=== PATIENT | male | born 1945 | race Caucasian/White ===

== ENCOUNTER 2018-05-17 10:07 | Emergency (ER) | payer MEDICARE, OTHER, SELFPAY ==
--- NOTE | 2018-05-17 10:15 | DI.RAD.S_ITS ---
PROCEDURE: XR FINGER LT MIN 2V INDICATIONS: crush injury TECHNIQUE: AP hand, 2 views of the index (2nd) finger(s) acquired. COMPARISON: None. FINDINGS: Bones: No fractures or dislocations. No suspicious bony lesions. Moderate degenerative changes are present involving the interphalangeal joints of the index finger. Soft tissues: No suspicious soft tissue calcifications. Soft tissue swelling of the index finger is present. No unexpected radiopaque foreign bodies are appreciated. IMPRESSION: 1. No displaced fracture of the index finger. 2. 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 Dictated by: Alonso Hernandez M.D. on 05/17/2018 at 10:22 Approved by: Alonso Hernandez M.D. on 05/17/2018 at 10:31
[2018-05-17 10:16] VITALS: BP 172/70; PULSE 64; RESP 16; TEMP 36.7; O2SAT 98
[2018-05-17] MEDS: TET,DIPH,PERTUSS(ACELL),VAC/PF 0.5 ML SYRINGE IM (10:23)
--- NOTE | 2018-05-17 10:48 | ED.UPPEXIN ---
HPI - Extremity Injury (Upper) General Chief Complaint: Extremity Injury, Upper Stated Complaint: left hand pointer finger crush injury Time Seen by Provider: 05/17/18 10:35 Source: patient Mode of arrival: ambulatory Limitations: no limitations History of Present Illness HPI narrative: This is a 72-year-old male who comes in with complaint of injury to his left 2nd finger. Patient states he was loading up a trailer that was heavy. They had on a [place] and as they moved forward fell catching his finger between the ball and the trailer hitch. The patient states it was quite painful initially but has improved. He has full range of motion he states that he is able to feel touch. He has a laceration adjacent to the nail in running up the finger. He states his pain has pretty much resolved at this time. He states his tetanus was already updated here in the department. Patient denies any medical problems. States he has had his tonsils removed in the past. Denies any allergies to medications. Related Data Previous Rx's Medication Instructions Recorded cephalexin [Keflex] 500 mg PO QID #40 cap 05/17/18 Allergies Allergy/AdvReac Type Severity Reaction Status Date / Time No Known Drug Allergies Allergy Verified 05/17/18 10:22 Review of Systems Review of Systems ROS Unobtainable: All systems reviewed & are unremarkable except as noted in HPI and below Musculoskeletal Reports as per HPI, Denies deformity, Denies numbness and Denies tingling Integumentary/Breasts Reports unusual bruising and Reports wounds Neurologic Denies numbness and Denies tingling PFSH Surgical History History of tonsillectomy (Acute) Exam Narrative Exam Narrative: GENERAL: Alert and oriented x three, well-nourished, well-appearing male in mild distress. HEENT: Head normocephalic, atraumatic, EOMI, pupils reactive, face symmetric, moist mucous membranes NECK: Supple, full range of motion CARDIOVASCULAR: Regular rate and rhythm without murmurs, rubs or gallops. RESPIRATORY: Breath sounds equal bilaterally, no wheezes rales or rhonchi. ABDOMEN: Soft, nontender. Normoactive bowel sounds all 4 quadrants. No guarding or rebound, rigidity, no mass : No CVA tenderness EXTREMITIES: Normal range of motion, no clubbing. Patient has an irregular laceration of the midline of the dorsum of the finger extending just beyond the distal interphalangeal joint, also adjacent to the radial side of the nail patient has some swelling, pain. Patient has sensation to light touch throughout the finger. Cap refills less than 2 sec. He has some bruising underneath the finger. Patient is able to flex and extend the finger fully. No weakness. Patient has 2+ radial pulse. Neurovascularly intact NEUROLOGICAL: Cranial nerves II through XII grossly intact. Moving all extremities SKIN: Warm, dry, no petechiae, no rashes or lesions. Initial Vital Signs Initial Vital Signs: Vital Signs Temperature 98.1 F 05/17/18 10:16 Pulse Rate 64 05/17/18 10:16 Respiratory Rate 16 05/17/18 10:16 Blood Pressure 172/70 H 05/17/18 10:16 Pulse Oximetry 98 05/17/18 10:16 Procedures Laceration Repair Laceration 1: Site: hand (2nd finger) Side (If applicable): left Size (cm): 2.3 Description: irregular Depth: simple, single layer Local Anesthetic: lidocaine 1% Amount of anesthesia used (mL): 8 Pre-repair: wound explored, irrigated extensively and deep structures intact Skin layer closed with: nylon Size (cm): 4-0 Number of sutures: 5 Technique: simple, interrupted Course Orders Ordered: Discontinued Medications Diphtheria/Tetanus/Acell Pertussis (Adacel) 0.5 ml IM .ONCE ONE Stop: 05/17/18 10:16 Last Admin: 05/17/18 10:23 Dose: 0.5 ml Vital Signs - 8 hr 05/17/18 10:16 Temperature 98.1 F Pulse Rate 64 Respiratory Rate 16 Blood Pressure 172/70 H Pulse Oximetry 98 MDM - Extremity Injury (Upper) Imaging Data finger xray: Radiologist's impression: [address] [address] XRay Report Signed Patient: Van Seth#: [id number] : 1945cct:[id number] Age/Sex: 72 / MDate of Service: 05/17/18 Loc: ED Accession Number: [id number] Procedure: XR finger LT min 2V Ordering Provider: Kaleigh Hill D.O. PROCEDURE: XR FINGER LT MIN 2V INDICATIONS: crush injury TECHNIQUE: AP hand, 2 views of the index (2nd) finger(s) acquired. COMPARISON: None. FINDINGS: Bones: No fractures or dislocations. No suspicious bony lesions. Moderate degenerative changes are present involving the interphalangeal joints of the index finger. Soft tissues: No suspicious soft tissue calcifications. Soft tissue swelling of the index finger is present. No unexpected radiopaque foreign bodies are appreciated. IMPRESSION: 1. No displaced fracture of the index finger. 2. 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 Dictated by: Alonso Hernandez M.D. on 05/17/2018 at 10:22 Approved by: Alonso Hernandez M.D. on 05/17/2018 at 10:31 Discharge Plan Departure Patient Disposition: Home Clinical Impression: Laceration of finger of left hand with damage to nail Qualifiers: Encounter type: initial encounter Finger: index finger Foreign body presence: without foreign body Qualified Code(s): S61.311A - Laceration without foreign body of left index finger with damage to nail, initial encounter Discharge Date/Time: 05/17/18 12:58 Interventions: ED Discharge Assessment Last Done: 05/17/18 12:58 Instructions: DI for Laceration Repair -- Finger Activity Restrictions/Additional Instructions: Followup the next 7-10 days for suture removal. Take Keflex 4 times daily until gone. You may take ibuprofen and/or Tylenol as needed for pain. Wound Care: Keep wound(s) clean and dry. Wash daily with soap and water only. Do not use over the counter products (alcohol or peroxide)on the wounds unless instructed by a physician. If wound condition worsens (increased/expanding redness, developing fluid blisters, or worsening pain), either contact your doctor for an urgent re-assessment , or return to the Emergency Department. Return to the Emergency Department for any new or worsening symptoms. Return to the ED, urgent care, or vist a primary care doctor for removal or suture or ashley Return if fever greater than 100.4 Fahrenheit, increased swelling, increasing pain or worsening symptoms such as increased discharge or spreading redness. Use warm compresses 3 times daily for 20 minutes to the affected area. If there is packing in place do not pull it out, if it falls out do not try to replace it. Prescriptions: New cephalexin [Keflex] 500 mg capsule 500 mg PO QID Qty: 40 RF: 0 Referrals: Gigi Zheng MD [Primary Care Provider] -
--- NOTE | 2018-05-17 10:52 | ED_ITS ---
HPI - Extremity Injury (Upper) General Chief Complaint: Extremity Injury, Upper Stated Complaint: left hand pointer finger crush injury Time Seen by Provider: 05/17/18 10:35 Source: patient Mode of arrival: ambulatory Limitations: no limitations History of Present Illness HPI narrative: This is a 72-year-old male who comes in with complaint of injury to his left 2nd finger. Patient states he was loading up a trailer that was heavy. They had on a [place] and as they moved forward fell catching his finger between the ball and the trailer hitch. The patient states it was quite painful initially but has improved. He has full range of motion he states that he is able to feel touch. He has a laceration adjacent to the nail in running up the finger. He states his pain has pretty much resolved at this time. He states his tetanus was already updated here in the department. Patient denies any medical problems. States he has had his tonsils removed in the past. Denies any allergies to medications. Related Data Previous Rx's Medication Instructions Recorded cephalexin [Keflex] 500 mg PO QID #40 cap 05/17/18 Allergies Allergy/AdvReac Type Severity Reaction Status Date / Time No Known Drug Allergies Allergy Verified 05/17/18 10:22 Review of Systems Review of Systems ROS Unobtainable: All systems reviewed & are unremarkable except as noted in HPI and below Musculoskeletal Reports as per HPI, Denies deformity, Denies numbness and Denies tingling Integumentary/Breasts Reports unusual bruising and Reports wounds Neurologic Denies numbness and Denies tingling PFSH Surgical History History of tonsillectomy (Acute) Exam Narrative Exam Narrative: GENERAL: Alert and oriented x three, well-nourished, well- appearing male in mild distress. HEENT: Head normocephalic, atraumatic, EOMI, pupils reactive, face symmetric, moist mucous membranes NECK: Supple, full range of motion CARDIOVASCULAR: Regular rate and rhythm without murmurs, rubs or gallops. RESPIRATORY: Breath sounds equal bilaterally, no wheezes rales or rhonchi. ABDOMEN: Soft, nontender. Normoactive bowel sounds all 4 quadrants. No guarding or rebound, rigidity, no mass : No CVA tenderness EXTREMITIES: Normal range of motion, no clubbing. Patient has an irregular laceration of the midline of the dorsum of the finger extending just beyond the distal interphalangeal joint, also adjacent to the radial side of the nail patient has some swelling, pain. Patient has sensation to light touch throughout the finger. Cap refills less than 2 sec. He has some bruising underneath the finger. Patient is able to flex and extend the finger fully. No weakness. Patient has 2+ radial pulse. Neurovascularly intact NEUROLOGICAL: Cranial nerves II through XII grossly intact. Moving all extremities SKIN: Warm, dry, no petechiae, no rashes or lesions. Initial Vital Signs Initial Vital Signs: Vital Signs Temperature 98.1 F 05/17/18 10:16 Pulse Rate 64 05/17/18 10:16 Respiratory Rate 16 05/17/18 10:16 Blood Pressure 172/70 H 05/17/18 10:16 Pulse Oximetry 98 05/17/18 10:16 Procedures Laceration Repair Laceration 1: Site: hand (2nd finger) Side (If applicable): left Size (cm): 2.3 Description: irregular Depth: simple, single layer Local Anesthetic: lidocaine 1% Amount of anesthesia used (mL): 8 Pre-repair: wound explored, irrigated extensively and deep structures intact Skin layer closed with: nylon Size (cm): 4-0 Number of sutures: 5 Technique: simple, interrupted Course Orders Ordered: Discontinued Medications Diphtheria/Tetanus/Acell Pertussis (Adacel) 0.5 ml IM .ONCE ONE Stop: 05/17/18 10:16 Last Admin: 05/17/18 10:23 Dose: 0.5 ml Vital Signs - 8 hr 05/17/18 10:16 Temperature 98.1 F Pulse Rate 64 Respiratory Rate 16 Blood Pressure 172/70 H Pulse Oximetry 98 MDM - Extremity Injury (Upper) Imaging Data finger xray: Radiologist's impression: [address] [address] XRay Report Signed Patient: Van Seth#: [id number] : 1945cct:[id number] Age/Sex: 72 / MDate of Service: 05/17/18 Loc: ED Accession Number: [id number] Procedure: XR finger LT min 2V Ordering Provider: Kaleigh Hill D.O. PROCEDURE: XR FINGER LT MIN 2V INDICATIONS: crush injury TECHNIQUE: AP hand, 2 views of the index (2nd) finger(s) acquired. COMPARISON: None. FINDINGS: Bones: No fractures or dislocations. No suspicious bony lesions. Moderate degenerative changes are present involving the interphalangeal joints of the index finger. Soft tissues: No suspicious soft tissue calcifications. Soft tissue swelling of the index finger is present. No unexpected radiopaque foreign bodies are appreciated. IMPRESSION: 1. No displaced fracture of the index finger. 2. 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 Dictated by: Alonso Hernandez M.D. on 05/17/2018 at 10:22 Approved by: Alonso Hernandez M.D. on 05/17/2018 at 10:31 Discharge Plan Departure Patient Disposition: Home Clinical Impression: Laceration of finger of left hand with damage to nail Qualifiers: Encounter type: initial encounter Finger: index finger Foreign body presence: without foreign body Qualified Code(s): S61.311A - Laceration without foreign body of left index finger with damage to nail, initial encounter Discharge Date/Time: 05/17/18 12:58 Interventions: ED Discharge Assessment Last Done: 05/17/18 12:58 Instructions: DI for Laceration Repair -- Finger Activity Restrictions/Additional Instructions: Followup the next 7-10 days for suture removal. Take Keflex 4 times daily until gone. You may take ibuprofen and/or Tylenol as needed for pain. Wound Care: Keep wound(s) clean and dry. Wash daily with soap and water only. Do not use over the counter products (alcohol or peroxide)on the wounds unless instructed by a physician. If wound condition worsens (increased/expanding redness, developing fluid blisters, or worsening pain), either contact your doctor for an urgent re- assessment , or return to the Emergency Department. Return to the Emergency Department for any new or worsening symptoms. Return to the ED, urgent care, or vist a primary care doctor for removal or suture or ashley Return if fever greater than 100.4 Fahrenheit, increased swelling, increasing pain or worsening symptoms such as increased discharge or spreading redness. Use warm compresses 3 times daily for 20 minutes to the affected area. If there is packing in place do not pull it out, if it falls out do not try to replace it. Prescriptions: New cephalexin [Keflex] 500 mg capsule 500 mg PO QID Qty: 40 RF: 0 Referrals: Gigi Zheng MD [Primary Care Provider] -
== END 2018-05-17 12:58 | disposition home or self-care (01) ==
PROVIDERS: Emergency Provider Emergency Medicine; PCP Family Medicine
DX: S61.311A Laceration without foreign body of left index finger with damage to nail, initial encounter (principal); Z23 Encounter for immunization
CPT/HCPCS: 12001; 73140; 90471; 99282; 99284; 90715

== ENCOUNTER → 2023-01-30 07:39 | Outpatient (CLI) | payer MEDICARE, OTHER, SELFPAY ==
--- NOTE | 2023-01-30 | DI.ECHO.S_ITS ---
[facility] +---------+ : : [address] : : : : [id number] : : : : Phone: [phone]---------+ Echocardiogram Report + + :Name: PATRICA OBRIEN Study Date: 01/30/2023 Height: 69 in : :[facility] ReadingLocation: Weight: 188 lb : : Gender: Male BSA: 2.0 m2 : :: 1945 Age: 77 yrs BP: 139/89 mmHg: :Reason For Study: CHEST PAIN : :Ordering Physician: GENEVIEVE, : :VEDA Performed By: Suyapa Philippe : :Referring: VEDA VALLEJO : + + Interpretation Summary The ejection fraction is estimated to be 60-65%. Diastolic parameters suggest probable normal left ventricular diastolic function and normal filling pressures. The right ventricle is normal in size and function. There is mild aortic regurgitation. Pulmonary artery pressures cannot be estimated because of the lack of a measurable TR jet velocity but the IVC suggests a CVP of around 3 mmHg. The ascending aorta is mildly enlarged, 3.8 cm. Procedure: A two-dimensional transthoracic echocardiogram with color flow and Doppler was performed. The study quality was technically adequate. There is no prior echocardiogram noted for this patient. The patient was in sinus rhythm with heart rates between 55-78 bpm during the exam. Left Ventricle: The left ventricle is normal in size. Proximal septal thickening is noted. The ejection fraction is estimated to be 60-65%. Diastolic parameters suggest probable normal left ventricular diastolic function and normal filling pressures. Right Ventricle: The right ventricle is normal in size and function. Atria: The left atrial size is normal. Right atrial size is normal. There is no Doppler evidence for an interatrial shunt. Mitral Valve: The mitral valve is normal in structure and function. There is no mitral regurgitation noted. Aortic Valve: The aortic valve is trileaflet. The aortic valve opens well. There is no aortic valve stenosis. There is mild aortic regurgitation. Tricuspid Valve: The tricuspid valve is normal in structure and function. No tricuspid regurgitation. Pulmonary artery pressures cannot be estimated because of the lack of a measurable TR jet velocity but the IVC suggests a CVP of around 3 mmHg. Pulmonic Valve: The pulmonic valve leaflets are thin and pliable; valve motion is normal. There is a trace or physiologic amount of pulmonic regurgitation. Great Vessels: The aortic root is borderline dilated. The ascending aorta is mildly enlarged. The IVC is of normal diameter and collapses greater than 50% with a sniff. This suggests a low right atrial pressure of 3 mm Hg. Pericardium/ Pleura There is no pericardial effusion. There is no pleural effusion. MMode/2D Measurements & Calculations LVIDd: 5.4 cm LVOT diam: 2.1 cm LVIDs: 3.5 cm Ao root diam: 4.0 cm FS: 34.9 % asc Aorta Diam: 3.8 cm IVSd: 0.96 cm Ao Arch Diam (Prox Trans): 2.6 cm LVPWd: 0.90 cm LV modi. diameter/BSA (cm/m^2): 2.7 LV sys. diameter/BSA (cm/m^2): 1.7 LA A2 area: 24.2 cm2 RA long axis: 4.7 cm LA A4 area: 16.4 cm2 RA area: 14.5 cm2 LA length (vol): 5.1 cm RA vol: 37.8 ml LA vol: 66.2 ml RA : 18.8 ml/m2 LA vol index: 32.9 ml/m2 IVC diam: 1.5 cm RVD1 (basal): 3.7 cm TAPSE: 2.5 cm Doppler Measurements & Calculations Ao V2 max: 118.5 cm/sec LVOT Max Kahlil: 113.0 cm/sec Ao V2 mean: 81.2 cm/sec LV V1 max P.1 mmHg Ao max P.6 mmHg LV V1 VTI: 22.4 cm Ao mean P.9 mmHg TARA(I,D): 3.5 cm2 Ao V2 VTI: 23.2 cm TARA(V,D): 3.5 cm2 sev ratio: 0.97 TARA indexed to BSA (cm^2/m^2): 1.7 MV E max kahlil: 73.7 cm/sec PA pr(Accel): 34.5 mmHg MV A max kahlil: 49.0 cm/sec MV E/A: 1.5 Med Peak E' Kahlil: 6.2 cm/sec E/E' med: 11.9 Lat Peak E' Kahlil: 6.7 cm/sec E/E' lat: 11.1 E/e' average: 11.5 MV dec time: 0.19 sec SV(LVOT): 81.3 ml Reading Physician:10:56 AM
== END ==
PROVIDERS: PCP Internal Medicine; Referring Provider Physician Assistant Medical; Visit Provider Physician Assistant Medical
DX: I35.1 Nonrheumatic aortic (valve) insufficiency (principal); R07.9 Chest pain, unspecified; I77.89 Other specified disorders of arteries and arterioles
CPT/HCPCS: 93306

== ENCOUNTER → 2023-04-16 08:19 | Outpatient (CLI) | payer MEDICARE, OTHER, SELFPAY ==
--- NOTE | 2023-04-16 08:22 | DI.US.S_ITS ---
PROCEDURE: US CAROTID DOPPLER BI INDICATIONS: Syncope and collapse TECHNIQUE: Color and pulse Doppler interrogation was performed of both carotid systems, with image documentation and velocity measurements. COMPARISON: None. FINDINGS: Stenosis calculations are based on SRU (Society of Radiologists in Ultrasound) criteria. Right side: Brachial blood pressure: 123/72 mm Hg. Common carotid artery peak systolic velocity: 78 cm/sec. Internal carotid artery peak systolic velocity: 89 cm/sec. Internal carotid artery end diastolic velocity: 27 cm/sec. External carotid artery peak systolic velocity: 76 cm/sec. ICA/CCA peak systolic ratio: 1.2. Ceballos scale imaging description: Mild plaque Percent internal carotid artery stenosis: Less than 50%. Vertebral artery: Flow direction is antegrade. Left side: Brachial blood pressure: 133/76 mm Hg. Common carotid artery peak systolic velocity: 70 cm/sec. Internal carotid artery peak systolic velocity: 95 cm/sec. Internal carotid artery end diastolic velocity: 71 cm/sec. External carotid artery peak systolic velocity: 108 cm/sec. ICA/CCA peak systolic ratio: 1.4. Ceballos scale imaging description: Mild plaque at the bifurcation Percent internal carotid artery stenosis: Less than 50%. Vertebral artery: Flow direction is antegrade. 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 Dictated by: Ivory Yang M.D. on 04/16/2023 at 17:00 Approved by: Ivory Yang M.D. on 04/16/2023 at 17:03
[2023-04-16 10:31] LABS: Add Manual Diff / Slide Review NO; Basophils Absolute Auto 0 /uL (0-100); Basophils Percent Auto 0.5 % (0-2); Eosinophils Absolute Auto 200 /uL (0-450); Hematocrit 44.4 % (41-53); Hemoglobin 15.5 g/dL (13.5-17.5); Lymphocytes Absolute Auto 1700 /uL (1100-4500); Lymphocytes Percent Auto 32.4 % (25-40); Mean Corpuscular Hemoglobin 31.5 PG (26-34); Monocytes Absolute Auto 500 /uL (0-900); Monocytes Percent Auto 8.8 % (3-14); Neutrophils Absolute Auto 2900 /uL (1500-7000); Neutrophils Percent Auto 55.3 % (50-75); Platelet Count 193 X10^3/uL (150-400); Red Blood Cell Count 4.93 X10^6/uL (4.5-5.9); Red Cell Distribution Width 13.9 % (11.6-14.8); White Blood Cell Count 5.3 X10^3/uL (4.5-11.0)
[2023-04-16 10:52] LABS: Alanine Aminotransferase 16 IU/L (<50); Albumin 4.1 g/dL (3.5-5.0); Albumin Globulin Ratio 1.4 (1.0-2.8); Alkaline Phosphatase 66 U/L (38-126); Aspartate Aminotransferase 22 IU/L (17-59); BUN Creatinine Ratio 15.3 (6-22); Bilirubin Total 0.9 mg/dL (0.2-1.3); Blood Urea Nitrogen 15 mg/dL (9-20); Carbon Dioxide 27 mmol/L (22-32); Chloride 103 mmol/L (98-107); Cholesterol 196 mg/dL (140-199); Estimated Glomerular Filt Rate > 60 mL/min (>60); Globulin 2.9 g/dL (1.7-4.1); Glucose 103 mg/dL (80-110); HDL Cholesterol 36 mg/dL (40-60); HEMOLYSIS < 15 (0-50); LDL Cholesterol Calculated 126 mg/dL (<100); Potassium 4.4 mmol/L (3.4-5.1); Sodium 136 mmol/L (137-145); Triglycerides 168 mg/dL (35-150)
[2023-04-16 11:17] LABS: Prostate Specific Antigen Scrn 2.43 ng/mL (0.1-4.0)
[2023-04-16 11:36] LABS: Vitamin B12 281 pg/mL (239-931)
[2023-04-16 11:43] LABS: TSH w/ Reflex to FT4 1.75 uIU/mL (0.47-4.68)
== END ==
PROVIDERS: PCP Internal Medicine; Referring Provider Internal Medicine; Visit Provider Internal Medicine
DX: I65.23 Occlusion and stenosis of bilateral carotid arteries (principal); R55 Syncope and collapse; E78.2 Mixed hyperlipidemia; N40.1 Benign prostatic hyperplasia with lower urinary tract symptoms; R41.3 Other amnesia; Z87.11 Personal history of peptic ulcer disease
CPT/HCPCS: 36415; 80053; 80061; 82607; 84153; 84443; 85025; 93880; G0103

== ENCOUNTER 2025-02-07 16:57 | Emergency (ER) | payer MEDICARE, OTHER, SELFPAY ==
[2025-02-07] VITALS (14 sets, daily range): BP systolic 141–171; BP diastolic 73–94; PULSE 63–75; RESP 17–27; TEMP 36.9; O2SAT 95–99; BMI 26.6
--- NOTE | 2025-02-07 18:22 | ED_ITS ---
HPI - Male Genitourinary General Chief complaint: Urogenital-Male Stated complaint: urinary issues Time Seen by Provider: 02/07/25 17:14 Source: patient and EMS Mode of arrival: EMS History of Present Illness HPI Narrative: 79-year-old male without any significant past medical history comes into the ED from home via EMS for evaluation of multiple complaints, patient states that all his symptoms started a proximally 1 month ago when he had a mechanical trip and fall, he states that he tripped off of a step going up his truck. He states that he did hit his head did pass out for few sec but ended up being able to go home, he states that since then he has felt like he has been having some brain fog, he also states that he has been having some dysuria dark and foul-smelling urine. He denies blood thinners denies any other symptoms such as headache visual disturbance chest pain shortness breath fever chills or any other GI/ symptoms at this time. Patient states that given length of symptoms decided come into the ED for further evaluation treatment. At time of my evaluation patient NIH of 0 no focal deficits he is only really complaining of the intermittent brain fog and the urinary symptoms. NIH of 0 no focal deficits Related Data Previous Rx's ?Medication ?Instructions ?Recorded cephalexin 500 mg capsule (Keflex) 500 mg PO QID #40 c aps 05/17/18 cefuroxime axetil 500 mg tablet 500 mg PO BID 7 days # 14 tabs 02/07/25 Allergies Allergy/AdvReac Type Severity Reaction Status Date / Time No Known Drug Allergies Allergy Verified 02/07/25 17:26 Review of Systems Review of Systems Narrative: General: Denies fever, chills, weight loss HEENT: Positive head strike, Denies headache, eye drainage, eye irritation, head trauma, sore throat, voice change Cardiovascular: Denies any chest pain, palpitations, tachycardia Respiratory: Denies any shortness of breath, cough, wheeze, stridor GI/: Positive dysuria, foul-smelling urine Denies any abdominal pain, nausea, vomiting, diarrhea, bright red blood per rectum, melanotic stools, urinary frequency, urinary retention, hematuria MSK: Denies any joint pain, muscle pains, swelling Skin: Denies any rashes, lesions, discoloration Neuro: Positive brain fog/confusion Denies any headache, lightheadedness, dizziness, fainting, weakness Psych: Denies SI/HI Patient History Surgical History (Updated 05/17/18 @ 10:50 by Kaleigh Hill DO) History of tonsillectomy Social History Smoking Status: Never smoker Smoking Status: Never smoker Exam Narrative Exam Narrative: General: Cooperative, well-developed, not in acute distress HEENT: Normocephalic, atraumatic, PERRLA, normal sclera, eyelids normal Neck: Active full range of motion, atraumatic Chest: Normal to inspection, negative crepitus, no overlying erythema ecchymosis Respiratory: Normal respiratory effort, not in acute respiratory distress, clear to auscultation bilaterally negative cough, wheeze, tachypnea, rhonchi, rales Cardiology: Regular rate rhythm negative gallop, murmur, rubs GI/: No tenderness to palpation, soft, non rigid, normal to inspection, exam deferred MSK: Full active range of motion in all 4 extremities, atraumatic, no tenderness to palpation of any bony prominences Skin: No rashes or lesions noted Neuro: NIH of 0 no focal deficits Alert awake oriented x3, moves all 4 extremities spontaneously, cranial nerves intact, able to answer all questions appropriately follows commands appropriately Psych: Cooperative, negative suicidal or homicidal ideations Initial Vital Signs Initial Vital Signs: Vital Signs Temperature 98.4 F 02/07/25 17:26 Pulse Rate 71 02/07/25 17:26 Respiratory Rate 18 02/07/25 17:26 Blood Pressure 171/87 H 02/07/25 17:26 Pulse Oximetry 97 02/07/25 17:26 Oxygen Delivery Method Room Air 02/07/25 17:26 Course Orders Ordered: ED Orders 02/07/25 17:21 Complete Blood Count AUTO DIFF Stat Comprehensive Metabolic Panel Stat Lipase Stat Magnesium Stat NT-proBNP (BNP-Adult 18+) Stat PTT Partial Thromboplastin [place] Stat Prothrombin Time INR Stat Troponin & CK Cardiac Panel Stat 02/07/25 18:41 XR chest 1V Stat EKG-12 Lead Stat 02/07/25 18:42 CT head/brain wo con Stat Covid-19 + FLU A/B + RSV - PCR Stat 02/07/25 20:46 Urine Microscopic Stat Discontinued Medications Sodium Chloride (Normal Saline 0.9%) 1,000 mls @ 1,000 mls/hr IV BOLUS ONE Stop: 02/07/25 19:40 Last Infusion: 02/07/25 20:47 Dose: Infused Documented By: Admin: 02/07/25 18:57 Dose: 1,000 mls/hr Documented By: NITISH Vital Signs Vital signs: Vital Signs - 8 hr 02/07/25 17:26 02/07/25 18:11 02/07/25 18:15 Temperature 98.4 F Pulse Rate 71 63 Respiratory Rate 18 18 Blood Pressure 171/87 H 157/73 H Pulse Oximetry 97 98 Oxygen Delivery Method Room Air 02/07/25 18:15 02/07/25 18:30 02/07/25 18:30 Temperature Pulse Rate 67 70 Respiratory Rate 23 17 Blood Pressure 143/76 H Pulse Oximetry 99 98 Oxygen Delivery Method 02/07/25 18:45 02/07/25 18:45 Temperature Pulse Rate 67 Respiratory Rate 23 Blood Pressure 141/75 H Pulse Oximetry 97 Oxygen Delivery Method MDM - Male Genitourinary Lab Data 02/07/25 17:21 02/07/25 17:21 Labs: Lab Results 02/07/25 Range/Units 17:21 WBC 6.3 (4.5-11.0) X10^3/uL RBC 4.82 (4.5-5.9) X10^6/uL Hgb 15.0 (13.5-17.5) g/dL Hct 42.2 (41-53) % MCV 87.5 (80-100) fL MCH 31.1 (26-34) PG MCHC 35.5 (30-36) % RDW 12.8 (11.6-14.8) % Plt Count 260 (150-400) X10^3/uL Neut % (Auto) 80.9 H (50-75) % Lymph % (Auto) 10.2 L (25-40) % [place]iss % (Auto) 7.9 (3-14) % Eos % (Auto) 0.7 L (2-4) % Baso % (Auto) 0.3 (0-2) % Neut # (Auto) 5100 (5761-9539) /uL Lymph # (Auto) 600 L (3989-9289) /uL [place] # (Auto) 500 (0-900) /uL Eos # (Auto) 0 (0-450) /uL Baso # (Auto) 0 (0-100) /uL PT 13.5 H (9.4-12.5) SECONDS INR 1.2 (0.9-1.3) APTT 27 (25.1-36.5) SECONDS Sodium 133 L (137-145) mmol/L Potassium 3.7 (3.4-5.1) mmol/L Chloride 97 L (98-107) mmol/L Carbon Dioxide 26 (22-32) mmol/L BUN 21 H (9-20) mg/dL Creatinine 1.11 (0.66-1.25) mg/dL Estimated GFR > 60 (>60) mL/min BUN/Creatinine Ratio 18.9 (6-22) Glucose 104 H (70-99) mg/dL Calcium 9.2 (8.4-10.2) mg/dL Magnesium 2.0 (1.6-2.3) mg/dL Total Bilirubin 1.3 (0.2-1.3) mg/dL AST 26 (17-59) IU/L ALT 20 (<50) IU/L Alkaline Phosphatase 94 (38-126) U/L Total Creatine Kinase 42 L (55-170) U/L Troponin I < 0.012 (0.01-0.034) ng/mL NT-Pro-B Natriuret Pep 232 (<450) pg/mL Total Protein 7.5 (6.3-8.2) g/dL Albumin 4.2 (3.5-5.0) g/dL Globulin 3.3 (1.7-4.1) g/dL Albumin/Globulin Ratio 1.3 (1.0-2.8) Lipase 50 (23-300) U/L Urine Dip Bedside Urine Glucose Negative Bedside Urine Bilirubin - Negative Bedside Urine Ketone + 15 Urine Specific [place] 1.015 Bedside Urine Occult Blood ++ Bedside Urine pH 6.0 Bedside Urine Protein +/- 15 Bedside Urine Urobilinogen +/- 1mg Bedside Urine Nitrite + Positive Bedside Urine Leukocytes ++ 125 Esterase ECG Data Interpretation: EKG interpreted by ED physician sinus 68 beats per minute QTC 423, normal axis no STEMI MDM Narrative Medical decision making narrative: 79-year-old male without any significant past medical history coming into the ED from home via EMS for evaluation multiple complaints. He states that 1 month ago after he had a mechanical trip and fall when he was going up his truck he fell hit his head had LOC but went about his day afterwards. He is not on any blood thinners, he states that since then he has been feeling brain fog/for confusion, he also states that a proximally a week ago he started developing foul-smelling darker urine. He states that he had worsening brain fog today while playing poker therefore called his family member who is a nurse and told him to be evaluated in the ED. at time of my evaluation patient NIH of 0 no focal deficits his real only complaint is the brain fog and his dysuria/foul- smelling urine. Patient lab work was reviewed, no leukocytosis, Chem panel unremarkable, troponin negative, BNP negative, patient's CT scan of the head without any acute intracranial abnormality, chest x-ray without any acute cardiopulmonary abnormality, urinalysis did show signs of acute urinary tract infection Discharge Plan Departure Patient Disposition: Home Clinical Impression: Urinary tract infection Instructions: DI for Urinary Tract Infection (UTI) Activity Restrictions/Additional Instructions: Please follow up with the primary care doctor Please read the discharge instructions sheet carefully and bring all papers to all doctor follow-up visits, as it may contain information that your doctor may want to see. Disease processes change and evolve, if your symptoms worsen or if you develop any new symptoms that are concerning to you please return for evaluation. Your evaluation today does not show any evidence of any life- threatening/serious illnesses requiring admission to the hospital or surgery. Please follow-up with your doctor for re-evaluation in approximately 1 day. Seek immediate medical attention for any worrisome symptoms. *If you do not have a primary care provider please contact the [facility] Resource line at [phone]. They will ask some questions about your medical history and help get you set up with a doctor in the community. Prescriptions: New cefuroxime axetil 500 mg tablet 500 mg PO BID 7 Days Qty: 14 0RF No Action cephalexin [Keflex] 500 mg capsule 500 mg PO QID Qty: 40 0RF Referrals: Luis Steve MD [Primary Care Provider, Internal Medicine] Stand Alone Forms: Patient Portal/API
--- NOTE | 2025-02-07 18:41 | DI.RAD.S_ITS ---
PROCEDURE: XR CHEST 1V INDICATIONS: AMS TECHNIQUE: One view of the chest was acquired. COMPARISON: [facility], CR, XR CHEST 1 VIEW, 01/17/2023, 18:24. [facility], CT, CT HEAD/BRAIN WO CON, 02/07/2025, 18:50. FINDINGS: Surgical changes and devices: None. Lungs and pleura: Lungs are clear. No pleural effusions or pneumothorax. Mediastinum: The cardiac contours are within normal limits. The aorta demonstrates calcification and tortuosity. Bones and chest wall: Age-appropriate bony degenerative changes are seen. No suspicious bony lesions. Overlying soft tissues appear unremarkable. IMPRESSION: No acute cardiopulmonary abnormality is seen. Dictated by: Carlos Natarajan M.D. on 02/07/2025 at 18:22 Approved by: Carlos Natarajan M.D. on 02/07/2025 at 18:22
--- NOTE | 2025-02-07 18:41 | EKG_ITS ---
[address] [address] Test Date: 2025-02-07 Pat Name: Van Seth Department: [facility] Room: Gender: Male Group Rooms Coordinator: ALDA : 1945 Requested By: Order Number: [id number] Reading MD: Measurements Intervals [place] Rate: 68 P: 41 GA: 202 QRS: -22 QRSD: 90 T: 6 QT: 398 QTc: 423 Interpretive Statements Normal sinus rhythm
--- NOTE | 2025-02-07 18:42 | DI.CT.S_ITS ---
PROCEDURE: CT HEAD/BRAIN WO CON INDICATIONS: AMS, head strike x1 month ago TECHNIQUE: Noncontrast 4.5 mm thick angled axial sections acquired from the foramen magnum to the vertex, with coronal and sagittal reformats. For radiation dose reduction, the following was used: automated exposure control, adjustment of mA and/or kV according to patient size. COMPARISON: [facility], MR, BRAIN WITHOUT CONTRAST, 01/07/2016, 17:42. FINDINGS: Image quality: This examination is limited by involuntary motion artifact. CSF spaces: Basal cisterns are patent. No extra-axial fluid collections. The ventricles are symmetric in size and shape. Brain: No intracranial bleeds or mass effect. There is cerebral volume loss, with resultant ventricular and sulcal prominence. There are periventricular and deep white matter chronic small vessel ischemic changes. There is intracranial internal carotid artery atherosclerosis. Skull and face: Calvarium and visualized facial bones appear intact, without suspicious lesions. Sinuses: Visualized sinuses and mastoids are clear. IMPRESSION: No acute intracranial hemorrhage is seen. No acute intracranial pathology. To the limits of this noncontrast study, no findings of intracranial masses or mass effect can be seen. Dictated by: Carlos Natarajan M.D. on 02/07/2025 at 18:13 Approved by: Carlos Natarajan M.D. on 02/07/2025 at 18:14
[2025-02-07 18:48] LABS: Add Manual Diff / Slide Review NO; Hematocrit 42.2 % (41-53); Hemoglobin 15.0 g/dL (13.5-17.5); Lymphocytes Absolute Auto 600 /uL (1100-4500); Mean Corpuscular HGB Conc 35.5 % (30-36); Mean Corpuscular Hemoglobin 31.1 PG (26-34); Mean Corpuscular Volume 87.5 fL (80-100); Platelet Count 260 X10^3/uL (150-400)
[2025-02-07 18:56] LABS: Creatine Kinase 42 U/L (55-170)
[2025-02-07 18:57] LABS: Alanine Aminotransferase 20 IU/L (<50); Albumin 4.2 g/dL (3.5-5.0); Albumin Globulin Ratio 1.3 (1.0-2.8); Alkaline Phosphatase 94 U/L (38-126); Blood Urea Nitrogen 21 mg/dL (9-20); Calcium 9.2 mg/dL (8.4-10.2); Carbon Dioxide 26 mmol/L (22-32); Chloride 97 mmol/L (98-107); Estimated Glomerular Filt Rate > 60 mL/min (>60); Globulin 3.3 g/dL (1.7-4.1); Glucose 104 mg/dL (70-99); HEMOLYSIS < 15 (0-50); Lipase 50 U/L (23-300); Magnesium 2.0 mg/dL (1.6-2.3); Potassium 3.7 mmol/L (3.4-5.1); Sodium 133 mmol/L (137-145); Total Protein 7.5 g/dL (6.3-8.2)
[2025-02-07] MEDS: SODIUM CHLORIDE 0.9% 1,000 ML 1000 ML IV (18:57)
[2025-02-07 19:01] LABS: INR 1.2 (0.9-1.3); Prothrombin Time 13.5 SECONDS (9.4-12.5)
[2025-02-07 19:04] LABS: PTT Partial Thromboplastin Tim 27 SECONDS (25.1-36.5)
[2025-02-07 19:06] LABS: NT-proBNP (BNP-Adult 18+) 232 pg/mL (<450)
[2025-02-07 19:08] LABS: Troponin I < 0.012 ng/mL (0.01-0.034)
[2025-02-07 21:05] LABS: Culture Indicated Urine Specimen Cultured
[2025-02-07 21:47] LABS: Influenza A - CEPHEID Flu A NEGATIVE (NEGATIVE); Influenza B - CEPHEID Flu B NEGATIVE (NEGATIVE)
[2025-02-07 21:50] LABS: COVID-19 CEPHEID 4-PLEX PCR Negative (Negative)
== END 2025-02-07 21:17 | disposition home or self-care (01) ==
PROVIDERS: Emergency Provider Student in an Organized Health Care Education/Training Program; PCP Internal Medicine
DX: N39.0 Urinary tract infection, site not specified (principal); R41.0 Disorientation, unspecified; S09.90XA Unspecified injury of head, initial encounter; W17.89XA Other fall from one level to another, initial encounter
CPT/HCPCS: 36415; 70450; 71045; 80053; 81003; 81015; 82550; 83690; 83735; 83880; 84484; 85025; 85610; 85730; 87077; 87086; 87186; 87637; 93005; 99284; J7030